=== PATIENT | female | born 1950 | race Caucasian/White ===

== ENCOUNTER 2021-07-28 12:28 | Emergency (ER) | payer OTHER ==
--- NOTE | 2021-07-28 13:28 | RAD REPORT ---
EXAM DESCRIPTION: CT - Head Brain Wo Cont - 07/28/2021 1:14 pm CLINICAL HISTORY: hypertension;Headache COMPARISON: No comparisons TECHNIQUE: All CT scans are performed using dose optimization technique as appropriate and may inclu de automated exposure control or mA/KV adjustment according to patient size. FINDINGS: No intracranial hemorrhage, hydrocephalus or extra-axial fluid collection.No areas of brai n edema or evidence of midline shift. The paranasal sinuses and mastoids are clear. The calvarium is intact. IMPRESSION: No acute intracranial abnormality.
--- NOTE | 2021-07-28 14:55 | RAD REPORT ---
EXAM DESCRIPTION: RAD - Chest Single View - 07/28/2021 2:43 pm CLINICAL HISTORY: hypertension COMPARISON: No comparisons FINDINGS: Lines: None. Lungs: No evidence of edema or pneumonia. Pleural: No significant pleural effusions or pneumothorax. Cardiac: The heart size is within normal limits. Bones: No acute fractures. Other: IMPRESSION: No acute cardiopulmonary disease.
[2021-07-28 15:07] LABS: Absolute Lymphocytes (CBC) 1.8 K/uL (0.7-4.9); Basophils % 0.8 % (0-1.3); Lymphocytes % 19.3 % (15.3-44.8); MPV 8.4 fL (7.6-11.3); Protime INR 1.06; RBC Red Blood Cell Count 5.64 M/uL (3.86-4.86)
[2021-07-28 15:24] LABS: Urine Blood Trace-intact (Negative); Urine Glucose Negative (Negative); Urine Protein Negative (Negative); Urine Specific Gravity 1.025 (1.005-1.030); Urine pH 6.5 (5.0-7.0)
[2021-07-28 15:24] LABS: ALT/SGPT 19 U/L (12-78); AST/SGOT 13 U/L (15-37); Albumin 3.7 g/dL (3.4-5.0); Alkaline Phosphatase 121 U/L (45-117); BUN Blood Urea Nitrogen 9 mg/dL (7-18); Bicarbonate 29 mmol/L (21-32); Bilirubin Direct 0.2 mg/dL (0-0.2); Bilirubin Total 0.7 mg/dL (0.2-1.0); Glucose Level 106 mg/dL (74-106); Magnesium 2.4 mg/dL (1.8-2.4); NT PRO-BNP 409 pg/mL (<125); Potassium 3.6 mmol/L (3.5-5.1); Protein, Total 7.8 g/dL (6.4-8.2); Sodium Level 142 mmol/L (136-145); Troponin (Emerg Dept Use Only) < 0.02 ng/mL (0.0-0.045)
[2021-07-28] MEDS ORDERED: cloNIDine HCL 0.1 MG TAB ONE (15:52)
[2021-07-28] MEDS ORDERED: ASPIRIN 81 MG CHEWABLE TABLET ONE (15:52)
--- NOTE | 2021-07-28 15:57 | ER ---
Nurse's Notes [facility] Name: Radha San Age: 70 yrs Sex: Female : 1950 Arrival Date: 07/28/2021 Time: 12:31 Bed 6 Private MD: Diagnosis: Hypertensive heart disease without heart failure Presentation: 07/28 12:43 Chief complaint: Patient states: [place] [facility] sent due to BP 200 systolic, gave me a jl7 pill but it didn't help, reports headache 11/17. Coronavirus screen: Vaccine status: Patient reports being unvaccinated. Ebola Screen: No symptoms or risks identified at this time. Initial Sepsis Screen: Does the patient meet any 2 criteria? No. Patient's initial sepsis screen is negative. Does the patient have a suspected source of infection? No. Patient's initial sepsis screen is negative. Risk Assessment: Do you want to hurt yourself or someone else? Patient reports no desire to harm self or others. Onset of symptoms was July 28, 2021. 12:43 Method Of Arrival: Ambulatory jl7 12:43 Acuity: JOE 2 jl7 Triage Assessment: 12:47 General: Appears in no apparent distress. uncomfortable, Behavior is calm, cooperative, jl7 appropriate for age. Pain: Complains of pain in headache Pain currently is 1 out of 10 on a pain scale. Historical: - Allergies: 12:47 No Known Allergies; jl7 - Home Meds: 12:47 metoprolol tartrate 50 mg Oral tab 1 tab 2 times per day [Active]; sertraline 50 mg jl7 oral tab 1 tab once daily [Active]; atorvastatin 20 mg oral tab 1 tab once daily [Active]; losartan-hydrochlorothiazide 100-12.5 mg oral tab 1 tab once daily [Active]; - PMHx: 12:47 Depressive disorder; high cholesterol; Hypertensive disorder; jl7 - PSHx: 12:47 Tonsillectomy; jl7 - Immunization history:: Adult Immunizations not up to date, Client reports having NOT received the Covid vaccine. - Social history:: Smoking status: Patient reports the use of cigarette tobacco products, smokes one pack cigarettes per day. Screenin:26 Abuse screen: Denies threats or abuse. Nutritional screening: No deficits noted. tw2 Tuberculosis screening: No symptoms or risk factors identified. Fall Risk None identified. Assessment: 15:33 General: Appears in no apparent distress. Behavior is calm, cooperative, appropriate tw2 for age. Pain: Denies pain. Neuro: Level of Consciousness is awake, alert, obeys commands, Oriented to person, place, time, situation. Cardiovascular: Patient's skin is warm and dry. Respiratory: Airway is patent Respiratory effort is even, unlabored, Respiratory pattern is regular, symmetrical. GI: No signs and/or symptoms were reported involving the gastrointestinal system. Derm: No signs and/or symptoms reported regarding the dermatologic system. Musculoskeletal: Range of motion: intact in all extremities. 16:07 Reassessment: Patient appears in no apparent distress at this time. No changes from tw2 previously documented assessment. Patient and/or family updated on plan of care and expected duration. Pain level reassessed. Patient is alert, oriented x 3, equal unlabored respirations, skin warm/dry/pink. 16:16 Reassessment: Patient appears in no apparent distress at this time. No changes from tw2 previously documented assessment. Patient and/or family updated on plan of care and expected duration. Pain level reassessed. Patient is alert, oriented x 3, equal unlabored respirations, skin warm/dry/pink. Vital Signs: 12:43 BP 194 / 74; Pulse 66; Resp 17; Temp 98.1(O); Pulse Ox 99% on R/A; Weight 84.82 kg; jl7 Height 5 ft. 2 in. (157.48 cm); Pain 1/10; 15:33 BP 179 / 72; Pulse 57; Resp 16; Pulse Ox 99% on R/A; tw2 16:07 BP 158 / 69; Pulse 50; Resp 22; Pulse Ox 98% on R/A; tw2 12:43 Body Mass Index 34.20 (84.82 kg, 157.48 cm) jl7 ED Course: 12:31 Patient arrived in ED. rg4 12:47 Triage completed. jl7 12:47 Arm band placed on right wrist. jl7 13:11 Bruno Zamudio PA is PHCP. cp 13:11 Tulio Saleem MD is Attending Physician. cp 13:14 CT Head Brain wo Cont In Process Unspecified. EDMS 14:43 XRAY Chest (1 view) In Process Unspecified. EDMS 14:58 Basic Metabolic Panel Sent. [facility] 14:58 CBC with Diff [facility] 14:58 LFT's Sent. [facility] 14:58 Magnesium Sent. [facility] 14:58 NT PRO-BNP Sent. [facility] 14:59 Patient has correct armband on for positive identification. Placed in gown. Bed in low 5 position. Call light in reach. Side rails up X 1. Warm blanket given. Pillow given. nuclear monitoring technician on. Pulse ox on. NIBP on. 14:59 PT-INR Sent. [facility] 14:59 Troponin (emerg Dept Use Only) Sent. [facility] 14:59 Initial lab(s) drawn, by me, sent to lab. EKG done, by ED staff, reviewed by Tulio Saleem MD. Inserted saline lock: 22 gauge in right antecubital area, using aseptic technique. Blood collected. 16:06 Judith Pederson, RN is Primary Nurse. tw2 16:16 No provider procedures requiring assistance completed. IV discontinued, intact, tw2 bleeding controlled, No redness/swelling at site. Pressure dressing applied. Administered Medications: 15:32 Drug: cloNIDine 0.2 mg Route: PO; tw2 16:07 Follow up: Response: No adverse reaction tw2 16:08 Follow up: Response: No adverse reaction; Blood pressure is lowered tw2 15:33 Drug: Aspirin Chewable Tablet 324 mg Route: PO; tw2 16:07 Follow up: Response: No adverse reaction tw2 Outcome: 15:57 Discharge ordered by . yifan 16:16 Discharged to home ambulatory. tw2 16:16 Condition: stable 16:16 Discharge instructions given to patient, Instructed on discharge instructions, follow up and referral plans. 16:16 Patient left the ED. tw2 Signatures: Dispatcher [employer] EDMS Bruno Zamudio PA PA cp Wise, Tara, RN RN tw2 Pam Pennington4 Kelsy [facility] Finn Lopez RN RN jl7
--- NOTE | 2021-07-28 15:57 | EDPHYS ---
Physician Documentation [facility] Name: Radha San Age: 70 yrs Sex: Female : 1950 Arrival Date: 07/28/2021 Time: 12:31 Bed 6 Private MD: ED Physician Tulio Saleem HPI: 07/28 14:20 This 70 yrs old Female presents to ER via Ambulatory with complaints of High cp Blood Pressure. 14:20 The patient has elevated blood pressure and discovered this at a physician's office, cp and sent to the emergency department for evaluation. 14:20 Onset: The symptoms/episode began/occurred today. cp 14:20 Associated signs and symptoms: Pertinent positives: headache, Pertinent negatives: cp chest pain, visual changes, vomiting, weakness. 14:20 Severity of symptoms: At its worst the blood pressure was 200 mm Hg. cp Historical: - Allergies: 12:47 No Known Allergies; jl7 - Home Meds: 12:47 metoprolol tartrate 50 mg Oral tab 1 tab 2 times per day [Active]; sertraline 50 mg jl7 oral tab 1 tab once daily [Active]; atorvastatin 20 mg oral tab 1 tab once daily [Active]; losartan-hydrochlorothiazide 100-12.5 mg oral tab 1 tab once daily [Active]; - PMHx: 12:47 Depressive disorder; high cholesterol; Hypertensive disorder; jl7 - PSHx: 12:47 Tonsillectomy; jl7 - Immunization history:: Adult Immunizations not up to date, Client reports having NOT received the Covid vaccine. - Social history:: Smoking status: Patient reports the use of cigarette tobacco products, smokes one pack cigarettes per day. ROS: 14:25 Constitutional: Negative for body aches, chills, fever, poor PO intake. cp 14:25 Cardiovascular: Negative for chest pain, edema, palpitations. cp 14:25 Neuro: Positive for headache, Negative for altered mental status, dizziness, loss of consciousness, syncope, weakness. 14:25 Eyes: Negative for injury, pain, redness, and discharge. cp 14:25 ENT: Negative for drainage from ear(s), ear pain, sore throat, difficulty swallowing, cp difficulty handling secretions. 14:25 Respiratory: Negative for cough, shortness of breath, wheezing. 14:25 Abdomen/GI: Negative for abdominal pain, nausea, vomiting, and diarrhea. 14:25 Back: Negative for pain at rest, pain with movement, radiated pain. 14:25 All other systems are negative. Exam: 14:30 Constitutional: The patient appears in no acute distress, alert, awake, comfortable, cp non-diaphoretic, non-toxic, well developed, well nourished. 14:30 Head/Face: Normocephalic, atraumatic. cp 14:30 Eyes: Periorbital structures: appear normal, Pupils: equal, round, and reactive to light and accomodation, Extraocular movements: intact throughout, Conjunctiva: normal, no exudate, no injection, Sclera: no appreciated abnormality, Lids and lashes: appear normal, bilaterally. 14:30 ENT: External ear(s): are unremarkable, Ear canal(s): are normal, clear, TM's: dullness, bilaterally, Nose: is normal, Mouth: Lips: moist, Oral mucosa: moist, Posterior pharynx: Airway: no evidence of obstruction, patent. 14:30 Neck: ROM/movement: is normal, is supple, without pain, no range of motions limitations, no nuchal rigidity. 14:30 Chest/axilla: Inspection: normal, Palpation: is normal, no crepitus, no tenderness. 14:30 Cardiovascular: Rate: normal, Rhythm: regular, Edema: ankle edema, that is mild, JVD: is not appreciated. 14:30 Respiratory: the patient does not display signs of respiratory distress, Respirations: normal, no use of accessory muscles, no retractions, labored breathing, is not present, Breath sounds: are clear throughout, no decreased breath sounds, no stridor, no wheezing. 14:30 Abdomen/GI: Inspection: abdomen appears normal, Bowel sounds: active, all quadrants, Palpation: abdomen is soft and non-tender, in all quadrants. 14:30 Neuro: Orientation: to person, place \T\ time. Mentation: is normal, Cerebellar function: is grossly normal, Motor: moves all fours, strength is normal, Sensation: is normal. 14:40 ECG was reviewed by the Attending Physician. cp Vital Signs: 12:43 BP 194 / 74; Pulse 66; Resp 17; Temp 98.1(O); Pulse Ox 99% on R/A; Weight 84.82 kg; jl7 Height 5 ft. 2 in. (157.48 cm); Pain 1/10; 15:33 BP 179 / 72; Pulse 57; Resp 16; Pulse Ox 99% on R/A; tw2 16:07 BP 158 / 69; Pulse 50; Resp 22; Pulse Ox 98% on R/A; tw2 12:43 Body Mass Index 34.20 (84.82 kg, 157.48 cm) 7 MDM: 13:21 Patient medically screened. cp 15:00 Differential diagnosis: hypertensive crisis, Malignant HTN, CVA, intracerebral cp hemorrhage. 15:54 Data reviewed: vital signs, nurses notes, lab test result(s), EKG, radiologic studies, cp CT scan, plain films. Response to treatment: the patient's symptoms have markedly improved after treatment, and as a result, I will discharge patient. ED course: VSS. Patient resting comfortably in exam room. Blood pressure improved, but remains elevated. Will discharge to home to continue monitoring blood pressure and to f/u with primary physician. 07/28 14:17 Order name: Basic Metabolic Panel; Complete Time: 15:36 cp 07/28 15:36 Interpretation: Normal except: GFR 84. cp 07/28 14:17 Order name: CBC with Diff; Complete Time: 15:36 cp 07/28 15:37 Interpretation: Normal except: RBC 5.64; HGB 15.6; HCT 47.0; ISIS% 74.3. cp 07/28 14:17 Order name: LFT's; Complete Time: 15:36 cp 07/28 15:38 Interpretation: Normal except: AST 13; ALK 121; GLOB 4.1; A/G 0.9. cp 07/28 14:17 Order name: Magnesium; Complete Time: 15:36 cp 07/28 14:17 Order name: NT PRO-BNP; Complete Time: 15:36 cp 07/28 14:17 Order name: PT-INR; Complete Time: 15:36 cp 07/28 12:47 Order name: CT Head Brain wo Cont; Complete Time: 13:50 rn 07/28 15:40 Interpretation: Report reviewed. 07/28 14:17 Order name: Troponin (emerg Dept Use Only); Complete Time: 15:36 cp 07/28 14:17 Order name: XRAY Chest (1 view); Complete Time: 15:36 cp 07/28 14:17 Order name: EKG; Complete Time: 14:18 cp 07/28 14:17 Order name: Cardiac monitoring; Complete Time: 14:58 cp 07/28 15:25 Order name: Urine Dipstick-Ancillary; Complete Time: 15:36 EDIA 07/28 14:17 Order name: EKG - Nurse/Tech; Complete Time: 14:58 cp 07/28 14:17 Order name: IV Saline Lock; Complete Time: 14:58 cp 07/28 14:17 Order name: Labs collected and sent; Complete Time: 14:58 cp 07/28 14:17 Order name: O2 Per Protocol; Complete Time: 14:58 cp 07/28 14:17 Order name: O2 Sat Monitoring; Complete Time: 14:58 cp EC:40 Rate is 53 beats/min. Rhythm is regular. IN interval is normal. QRS interval is normal. cp QT interval is prolonged at 502 msec. T waves are Inverted in lead aVR. Interpreted by me. Reviewed by me. Administered Medications: 15:32 Drug: cloNIDine 0.2 mg Route: PO; tw2 16:07 Follow up: Response: No adverse reaction tw2 16:08 Follow up: Response: No adverse reaction; Blood pressure is lowered tw2 15:33 Drug: Aspirin Chewable Tablet 324 mg Route: PO; tw2 16:07 Follow up: Response: No adverse reaction tw2 Disposition: 16:54 Co-signature as Attending Physician, Tulio Saleem MD I agree with the assessment and rn plan of care. Attestation: The patient's history, exam findings, diagnostics, and a summary of any interventions or procedures was reviewed in detail with Bruno PHAM. Disposition Summary: 07/28/21 15:57 Discharge Ordered Location: Home cp Problem: chronic cp Symptoms: have improved cp Condition: Stable cp Diagnosis - Hypertensive heart disease without heart failure cp Followup: cp - With: Private Physician - When: 1 - 2 days - Reason: Recheck today's complaints Discharge Instructions: - Discharge Summary Sheet cp - Hypertension, Adult cp - Managing Your Hypertension cp - Form - Blood Pressure Record Sheet cp - How to Take Your Blood Pressure cp - Aspirin and Your Heart cp Forms: - Medication Reconciliation Form cp - Thank You Letter cp - Antibiotic Education cp - Prescription Opioid Use cp Signatures: Dispatcher [employer] EDTulio Angeles MD MD rn Bruno Zamudio PA PA cp Wise, Tara RN RN tw2 Finn Lopez RN RN jl7
[2021-07-28 16:34] VITALS: TEMP 98.1
[2021-07-28 16:37] VITALS: BP 158/69; O2SAT 98
--- NOTE | 2021-07-29 10:26 | EKG ---
Test Date: 2021-07-28 Test Time: 14:33:47 Computer Forensics Technician: MARGARET MEASUREMENT RESULTS: Intervals: Rate: 53 HI: 158 QRSD: 80 QT: 502 QTc: 471 Golf: P: 65 HI: 158 QRS: 21 T: 80 INTERPRETIVE STATEMENTS: Sinus bradycardia Nonspecific T wave abnormality Prolonged QT Abnormal ECG No previous ECG available for comparison Electronically Signed On 07-29-21 10:22:07 CDT by Parag Muñoz
== END 2021-07-28 16:16 | disposition home or self-care (01) ==
LOC: ER 12:28
DX: I11.9 Hypertensive heart disease without heart failure (principal); E78.00 Pure hypercholesterolemia, unspecified; F32.9 Major depressive disorder, single episode, unspecified; F17.210 Nicotine dependence, cigarettes, uncomplicated
CPT/HCPCS: 36415; 70450; 71045; 80048; 80076; 81003; 83735; 83880; 84484; 85025; 85610; 93005; 99284